=== PATIENT | male | born 1990 | race Caucasian/White ===

== ENCOUNTER → 2017-04-21 | Outpatient (CLI) | payer OTHER, MEDICAID | LOC: FCPNEURO 23:13 | PROVIDERS: ATTEND Psychiatry & Neurology Sleep Medicine | DX: G47.31 Primary central sleep apnea (principal); G47.33 Obstructive sleep apnea (adult) (pediatric) ==

== ENCOUNTER 2018-05-11 06:54 | Emergency (ER) | payer OTHER, MEDICAID ==
--- NOTE | 2018-05-11 07:12 | EDPHY ---
H & P Stated Complaint: CP, SOB, INHALED CHEMICAL Time Seen by Provider: 05/11/18 07:05 - Personal History Current Tetanus Diphtheria and Acellular Pertussis (TDAP): Yes - Medical/Surgical History Hx Asthma: No Hx Chronic Respiratory Disease: No Hx Diabetes: No Hx Cardiac Disease: No Hx Renal Disease: No Hx Cirrhosis: No Hx Alcoholism: No Hx HIV/AIDS: No Hx Splenectomy or Spleen Trauma: No Other PMH: AUTISTIC, HTN, OBESE - Social History Smoking Status: Never smoked Constitutional: Initial Vital Signs Temperature (C) 36.6 C 05/11/18 06:58 Heart Rate 104 H 05/11/18 06:58 Respiratory Rate 20 05/11/18 06:58 Blood Pressure 162/103 H 05/11/18 06:58 O2 Sat (%) 95 05/11/18 06:58 O2 Delivery Mode Room Air Allergies/Adverse Reactions: No Known Allergies Allergy (Verified 10/09/12 14:26) Home Medications: Medication Instructions Recorded Fluoxetine 10/09/12 Depakote 05/11/18 Lisinopril 05/11/18 Propranolol HCl 05/11/18 amLODIPine BESYLATE 05/11/18 Medical Decision Making - Diagnostics Imaging: I viewed and interpreted images myself ED Course/Re-evaluation: CHIEF COMPLAINT: Chest pain, shortness of breath HISTORY OF PRESENT ILLNESS: The patient is a 27 y/o with a history of hypertension and obesity who complains of improving chest pain and dyspnea that began last night while using an "old [place] wood coach cleaner" aerosol. He first noticed lower chest/epigastric "bad heartburn pain" that did not change with exertion, positioning, or inspiration. Concurrently, he describes shortness of breath and gasping much worse than his baseline dyspnea. He describes some shortness of breath with exertional activities normally that he attributes to his excess weight. Both his dyspnea and pain have improved since onset, but are still present. He has never had pain like this before. He mentions he's also had a headache since yesterday prior to using the cleaning agent that did not improve with ibuprofen or Tylenol. He feels he is hotter and sweating more than usual, but has not measured a fever. No cough, sore throat, abdominal pain, urinary symptoms, diarrhea. He did receive a flu vaccination this season. He reports multiple family members have young and there is a history of heart disease, diabetes, emphysema in several family members. REVIEW OF SYSTEMS: A comprehensive 10 system review of systems is otherwise negative aside from elements mentioned in the history of present illness and medical decision making. PHYSICAL EXAM: HR, BP, O2 Sat, RR. Temp noted General Appearance: Alert, well hydrated, appropriate, and non-toxic appearing. Head: Atraumatic without scalp tenderness or obvious injury Eyes: Pupils equal, round, reactive to light and accommodation, EOMI, no trauma , no injection. Nose: Atraumatic, no rhinorrhea, clear. Throat: Mucus membranes moist. Neck: Supple, non-tender, no lymphadenopathy. Respiratory: No retractions, no distress, no wheezes, and no accessory muscle use. Lungs are clear to auscultation bilaterally. Cardiovascular: Regular rate and rhythm, no murmurs, rubs, or gallops. Good capillary refill all extremities. Gastrointestinal: Abdomen is soft, non-tender, non-distended, no masses, no rebound, no guarding, no peritoneal signs. Musculoskeletal: Normal active ROM of all extremities, atraumatic. Neurological: Alert, appropriate, and interactive. The patient has non-focal cranial nerves, motor, sensory, and cerebellar exam. Skin: No rashes, good turgor, no nodules on palpation. 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 Lives in [place]. Single. DIAGNOSTICS/PROCEDURES/CRITICAL CARE TIME: The 12 lead EKG was interpreted by myself. Sinus tachycardia rate 104. Minimal ST depression V4, V5. See hard copy and/or "tracemaster" electronic copy for interpretation. Chest x-ray: negative for acute process. DIFFERENTIAL DIAGNOSIS: The differential diagnosis for the patient's chest pain included but was not limited to myocardial ischemia, pulmonary embolus, chest wall pain, pleural inflammation, and pulmonary infectious causes. MEDICAL DECISION MAKING: This is a 27 y/o male with a history of hypertension and obesity who presents with a several hour history of lower chest pain and dyspnea after using an aerosolized wood coach cleaner last night. His exam is unremarkable apart from slight tachycardia. Lungs are clear and abdomen is benign. He does have a concerning family history in addition to his obesity and hypertension, but this is not clearly cardiac in nature. Respiratory infection also considered. Plan for IV, labs, EKG, chest x-ray, duo neb, and 324mg PO aspirin. POC troponin is normal. Labs unremarkable. Chest x-ray clear. Reassessed patient. He is feeling improved. Recommended discharge home with outpatient follow up as needed. Return precautions discussed. He is comfortable with this plan. - Data Points Laboratory Results: Laboratory Results 05/11/18 07:55 05/11/18 07:55 05/11/18 05/11/18 05/11/18 07:57 07:55 07:55 WBC RBC Hgb Hct MCV MCH MCHC RDW Plt Count MPV Neut % (Auto) Lymph % (Auto) Butts % (Auto) Eos % (Auto) Baso % (Auto) Nucleat RBC Rel Count Absolute Neuts (auto) Absolute Lymphs (auto) Absolute Monos (auto) Absolute Eos (auto) Absolute Basos (auto) Absolute Nucleated RBC Immature Gran % Immature Gran # D-Dimer 0.41 ug/mLFEU ug/mLFEU (0.00-0.50) Sodium 139 mEq/L mEq/L (135-145) Potassium 4.2 mEq/L mEq/L (3.5-5.2) Chloride 107 mEq/L mEq/L (97-110) Carbon Dioxide 21 mEq/l L mEq/l (22-31) Anion Gap 11 mEq/L mEq/L (6-14) BUN 13 mg/dL mg/dL (7-23) Creatinine 0.8 mg/dL mg/dL (0.7-1.3) Estimated GFR > 60 Glucose 135 mg/dL H mg/dL (70-100) Calcium 9.3 mg/dL mg/dL (8.5-10.4) Total Bilirubin 0.4 mg/dL mg/dL (0.1-1.4) Conjugated Bilirubin 0.4 mg/dL mg/dL (0.0-0.5) Unconjugated Bilirubin 0.0 mg/dL mg/dL (0.0-1.1) AST 43 IU/L IU/L (17-59) ALT 54 IU/L IU/L (21-72) Alkaline Phosphatase 104 IU/L IU/L (38-126) POC Troponin I 0.01 ng/mL ng/mL (0.00-0.08) NT-Pro-B Natriuret Pep 29 pg/mL pg/mL (0-125) Total Protein 7.9 g/dL g/dL (6.3-8.2) Albumin 4.5 g/dL g/dL (3.5-5.0) Lipase 102 IU/L IU/L (23-300) Valproic Acid 54.5 mcg/mL mcg/mL (50.0-150.0) 05/11/18 07:55 WBC 5.78 10^3/uL 10^3/uL (3.80-9.50) RBC 5.23 10^6/uL 10^6/uL (4.40-6.38) Hgb 16.1 g/dL g/dL (13.7-17.5) Hct 46.2 % % (40.0-51.0) MCV 88.3 fL fL (81.5-99.8) MCH 30.8 pg pg (27.9-34.1) MCHC 34.8 g/dL g/dL (32.4-36.7) RDW 11.9 % % (11.5-15.2) Plt Count 241 10^3/uL 10^3/uL (150-400) MPV 9.3 fL fL (8.7-11.7) Neut % (Auto) 41.1 % % (39.3-74.2) Lymph % (Auto) 42.9 % % (15.0-45.0) Butts % (Auto) 10.6 % % (4.5-13.0) Eos % (Auto) 4.0 % % (0.6-7.6) Baso % (Auto) 1.2 % % (0.3-1.7) Nucleat RBC Rel Count 0.0 % % (0.0-0.2) Absolute Neuts (auto) 2.38 10^3/uL 10^3/uL (1.70-6.50) Absolute Lymphs (auto) 2.48 10^3/uL 10^3/uL (1.00-3.00) Absolute Monos (auto) 0.61 10^3/uL 10^3/uL (0.30-0.80) Absolute Eos (auto) 0.23 10^3/uL 10^3/uL (0.03-0.40) Absolute Basos (auto) 0.07 10^3/uL 10^3/uL (0.02-0.10) Absolute Nucleated RBC 0.00 10^3/uL 10^3/uL (0-0.01) Immature Gran % 0.2 % % (0.0-1.1) Immature Gran # 0.01 10^3/uL 10^3/uL (0.00-0.10) D-Dimer Sodium Potassium Chloride Carbon Dioxide Anion Gap BUN Creatinine Estimated GFR Glucose Calcium Total Bilirubin Conjugated Bilirubin Unconjugated Bilirubin AST ALT Alkaline Phosphatase POC Troponin I NT-Pro-B Natriuret Pep Total Protein Albumin Lipase Valproic Acid Medications Given: Discontinued Medications Albuterol/Ipratropium (Duoneb) 3 ml IH EDNOW ONE Stop: 05/11/18 07:22 Last Admin: 05/11/18 07:31 Dose: 3 ml Aspirin (Aspirin) 324 mg PO EDNOW ONE Stop: 05/11/18 07:14 Last Admin: 05/11/18 07:28 Dose: 324 mg Point of Care Test Results: Chemistry 05/11/18 07:57 POC Troponin I 0.01 ng/mL ng/mL (0.00-0.08) Departure - Departure Disposition: Home, Routine, Self-Care Clinical Impression: Chest pain Condition: Good Instructions: Chest Pain (ED) Additional Instructions: Follow up with your primary care provider as needed for unimproved symptoms over the next few days. Tylenol and ibuprofen as directed on the packaging as needed for pain over the next few days. Okay to return to work tomorrow. Return to the ED for worsening of condition. Referrals: Saul Payne MD [Primary Care Provider] - As per Instructions Stand Alone Forms: Work Excuse Report Scribed for: Gene Oliva Report Scribed by: Karin Mccarthy Date of Report: 05/11/18 Time of Report: 07:13
[2018-05-11] MEDS ORDERED: ASPIRIN 81 MG CHEWABLE TAB PO ONE (07:13)
[2018-05-11] MEDS ORDERED: IPRATROPIUM/ALBUTEROL 3 ML DEYVIAL IH ONE (07:21)
[2018-05-11 08:06] LABS: PLATELET COUNT 241 10^3/uL (150-400)
[2018-05-11 09:03] VITALS: BP 127/89
--- NOTE | 2018-05-11 15:04 | CPEKG ---
Test Reason : OPEN Blood Pressure : / mmHG Vent. Rate : 104 BPM Atrial Rate : 103 BPM P-R Int : 158 ms QRS Dur : 099 ms QT Int : 333 ms P-R-T Axes : 045 044 -38 degrees QTc Int : 438 ms Sinus tachycardia Confirmed by Gene Oliva ([id number]) on 05/11/2018 3:04:40 PM Referred By: Confirmed By:Gene Oliva
== END 2018-05-11 09:08 | disposition home or self-care (01) ==
DX: R07.9 Chest pain, unspecified (principal); I10 Essential (primary) hypertension; F84.0 Autistic disorder
CPT/HCPCS: 84484-ER

== ENCOUNTER 2018-09-19 23:35 | Emergency (ER) | payer OTHER, MEDICAID ==
--- NOTE | 2018-09-19 23:42 | EDPHY ---
H & P Stated Complaint: cyst on rectum Time Seen by Provider: 09/19/18 23:41 HPI/ROS: HPI CHIEF COMPLAINT: Gluteal abscess. HISTORY OF PRESENT ILLNESS: This is a 28-year-old male, history of autism, history of hypertension, with a known pilonidal cyst, who at the beginning of the month saw his primary care doctor and was diagnosed with a pilonidal cyst. He was referred to surgery. He is due to schedule surgery to have this removed. However he arrives to the emergency room stating that tonight he noticed that the area got more indurated and swollen and red and more painful. He is concerned about a gluteal abscess. Past Medical History: Denies significant medical history except for autism, hypertension, depression, mood stabilization Past Surgical History: Denies recent surgery Social History: Denies drugs alcohol tobacco. Family History: Noncontributory ROS REVIEW OF SYSTEMS: 10 Systems were reviewed and negative with the exception of the elements mentioned in the history of present illness. Exam Constitutional triage nursing summary reviewed, vital signs reviewed, awake/ alert. Eyes normal conjunctivae and sclera, EOMI, PERRLA. HENT normal inspection, atraumatic, moist mucus membranes, no epistaxis, neck supple/ no meningismus, no raccoon eyes. Respiratory clear to auscultation bilaterally, normal breath sounds, no respiratory distress, no wheezing. Cardiovascular rate normal, regular rhythm, no murmur, no edema, distal pulses normal. Gastrointestinal soft, non-tender, no rebound, no guarding, normal bowel sounds, no distension, no pulsatile mass. Genitourinary no CVA tenderness. Musculoskeletal no midline vertebral tenderness, full range of motion, no calf swelling, no tenderness of extremities, no meningismus, good pulses, neurovascularly intact. Skin gluteal fold right-sided at the superior aspect of the gluteal fold is a small abscess. 2 cm x 2 cm indurated. atraumatic. Neurologic awake, alert and oriented x 3, AAOx3, moves all 4 extremities equally, motor intact, sensory intact, CN II-XII intact, normal cerebellar, normal vision, normal speech. Psychiatric normal mood/affect. Heme/Lymph/Immune no lymphadenopathy. Differential Diagnosis: Includes but is not limited to in a particular order gluteal abscess, pilonidal cyst. Medical Decision Making: Plan for this patient I&D. Antibiotics. Re-evaluation: 1213AM: Patient verbally consents to I and D of the right-sided gluteal fold superior aspect abscess. I+D Procedure: Verbal Consent Obtained. 1% lidocaine was used for local anesthesia of the right superior Gluteal fold. 5ccs were instilled. He Tolerated this well 11 Blade scalpel was used for I+D. 3CM cut was made, and I was able to obtain approx 5ccs of yellow puss out of the wound. Dressing was applied. He tolerated this very well. Antibiotics prescribed Keflex. Patient understands do warm soaks 2 to 3 times a day and take antibiotics as prescribed. Understands follow-up with surgery. We discussed return precautions return emergency room if there is worsening symptoms questions or concerns. Source: Patient - Personal History Current Tetanus/Diphtheria Vaccine: Yes Current Tetanus Diphtheria and Acellular Pertussis (TDAP): Yes - Medical/Surgical History Hx Asthma: No Hx Chronic Respiratory Disease: No Hx Diabetes: No Hx Cardiac Disease: No Hx Renal Disease: No Hx Cirrhosis: No Hx Alcoholism: No Hx HIV/AIDS: No Hx Splenectomy or Spleen Trauma: No Other PMH: AUTISTIC, HTN, OBESE - Social History Smoking Status: Never smoked Constitutional: Initial Vital Signs Temperature (C) 37.1 C 09/19/18 23:38 Heart Rate 101 H 09/19/18 23:38 Respiratory Rate 16 09/19/18 23:38 Blood Pressure 142/109 H 09/19/18 23:38 O2 Sat (%) 94 09/19/18 23:38 O2 Delivery Mode Room Air Allergies/Adverse Reactions: No Known Allergies Allergy (Verified 09/19/18 23:40) Home Medications: Medication Instructions Recorded Fluoxetine 10/09/12 Depakote 05/11/18 Lisinopril 05/11/18 Propranolol HCl 05/11/18 amLODIPine BESYLATE 05/11/18 Cephalexin [Keflex (*)] 500 mg PO Q6H #28 cap 09/20/18 Departure - Departure Disposition: Home, Routine, Self-Care Clinical Impression: Gluteal abscess Condition: Good Instructions: Abscess (ED) Additional Instructions: 1. Warm compresses warm soaks 2 to 3 times a day. 2. Antibiotics as prescribed 3. Follow up with your surgeon 4. Return to the emergency room if worsening symptoms questions or concerns. Referrals: Vitaliy Anguiano MD [Medical Doctor] - As per Instructions Prescriptions: Cephalexin [Keflex (*)] 500 mg PO Q6H #28 cap
[2018-09-20] MEDS ORDERED: CEPHALEXIN 500MG PREPACK#4 BTL TAKEHOME ONE (00:17)
[2018-09-20] MEDS ORDERED: CEPHALEXIN 500 MG CAP PO ONE (00:17)
[2018-09-20 00:37] VITALS: BP 160/95
== END 2018-09-20 00:40 | disposition home or self-care (01) ==
PROC: 0H98XZZ Drainage of Buttock Skin, External Approach (ICD-10-PCS; principal; 2018-09-19)
DX: L02.31 Cutaneous abscess of buttock (principal); I10 Essential (primary) hypertension